=== PATIENT | female | born 1955 | race Caucasian/White ===

== ENCOUNTER 2022-09-29 13:20 | Emergency (ER) | payer MEDICARE, SELFPAY ==
[2022-09-29 13:29] VITALS: BP 114/69; PULSE 109; RESP 18; TEMP 36.9; O2SAT 99; BMI 19.4
--- NOTE | 2022-09-29 13:38 | XR_ITS ---
The [address] [address] Patient Name: REID EATON MRN: [id number] date: 1955 Sex: F Assigned Patient Location: ER Current Patient Location: ER Accession/Order Number: [id number] Exam Date: 09/29/2022 14:00 Report Date: 09/29/2022 15:03 At the request of: MATTEO LUO Procedure: XR knee LT 3V EXAM: XR knee LT 3V HISTORY: injury COMPARISON: 10/08/2013 TECHNIQUE: 3 views Left knee FINDINGS: Bones: No acute or aggressive appearing bony lesion. Joints: Severe tricompartmental osteoarthritis. There is moderate to large knee joint effusion. Soft tissues: Unremarkable. XR/XR knee LT 3V IMPRESSION: No acute fracture is noted. moderate to large knee joint effusion. CT of the knee is recommended if clinically warranted. Electronically authenticated by: MELYSSA COHEN Date: 09/29/2022 15:03
--- NOTE | 2022-09-29 14:03 | XR_ITS ---
The [address] [address] Patient Name: REID EATON MRN: [id number] date: 1955 Sex: F Assigned Patient Location: ER Current Patient Location: Accession/Order Number: [id number] Exam Date: 09/29/2022 14:00 Report Date: 09/29/2022 14:45 At the request of: MATTEO LUO Procedure: XR chest 1V EXAM: XR chest 1V HISTORY: Weight loss and COPD. COMPARISON: Chest radiograph dated 09/25/2011. TECHNIQUE: Single frontal view of the chest performed. FINDINGS: There is a 4.9 cm right hilar mass with right upper lobe atelectasis. There is also a mass within the left suprahilar region/medial aspect of the left upper chest. These findings are highly suspicious for a malignancy. The trachea is unremarkable. The heart size is normal. There is a calcified granuloma at the right lung apex. There is a nodular radiodensity within the left lower chest which could represent a nipple shadow or a summation shadow however a lung nodule cannot be excluded based on this examination. There is no additional consolidation or infiltrate. There is no pleural effusion or pulmonary vascular congestion. The bony structures appear osteopenic. There is no acute osseous abnormality. XR/XR chest 1V IMPRESSION: There is a 4.9 cm right hilar mass with right upper lobe atelectasis. There is also a mass within the left suprahilar region/medial aspect of the left upper chest. These findings are highly suspicious for a malignancy. In addition, there is a nodular radiodensity within the left lower chest which could represent a nipple shadow or a summation shadow however a lung nodule cannot be excluded based on this examination. A CT examination of the chest with intravenous contrast is recommended. This examination should be performed with intravenous contrast for optimal evaluation of the mediastinum and bilateral hilum. Electronically authenticated by: RUDY GEORGE Date: 09/29/2022 14:45
--- NOTE | 2022-09-29 14:32 | ED.LOWEXI1 ---
HPI - Extremity Injury (Lower) General Chief Complaint: Extremity Injury, Lower Stated Complaint: L KNEE SEVERE PAIN Time Seen by Provider: 09/29/22 13:46 Source: patient Source comment: LEFT KNEE PAIN AND EDEMA Mode of arrival: Wheelchair Limitations: no limitations History of Present Illness HPI Narrative: pt presents emergency department complaining of left knee swelling. Patient states she had a Iron wheelbarrow That fell onto her distal femur on top of the knee 3 weeks ago. She states since then she's had swelling to the knee. She denies any ecchymosis. She states she had pain. She has been putting it off but did not want to get it checked out until this morning when her grand kids forced her to come. She denies any paresthesias, or focal weakness. Patient states that she has lost over 20 pounds in the last 3 months. She is very nauseated does not enjoy eating any solids but she is able to tolerate fluids. She states 2 years ago her doctor told her to get a colonoscopy and an endoscopy but she felt that she did not want any invasive procedures because of fear that when her father had an invasive procedure they found him to have metastatic cancer all over and then he had chemotherapy and he she did not want to go through the same steps. She has been putting it off and does not have a primary care doctor now. States just feels generally weak. She has a chronic cough denies any chest pain. She denies any abdominal pain. Related Data Previous Rx's Medication Instructions Recorded ondansetron HCl 4 mg tablet 4 mg PO Q8H PRN nausea and 09/29/22 vomiting 5 days #14 tabs Allergies Allergy/AdvReac Type Severity Reaction Status Date / Time NARCOTIC Allergy Intermediate Uncoded 09/29/22 13:33 Review of Systems ROS Status of ROS 10 or more systems reviewed and unremarkable except as noted in history and below PFSH PFS Social History Smoking status: Former smoker Exam Narrative Exam Narrative: Nurses notes and vital signs reviewed and patient is not hypoxic. General: Nontoxic, chronic ill and in no apparent distress. Skin: Warm, dry, no pallor noted. No Rash Head: Normocephalic, atraumatic. Neck: Supple, non-tender. Eye: Pupils are equal, round and EOMI. No scleral icterus. Ears, Nose, Mouth, and Throat: TM clear, no posterior oropharynx erythema or nasal mucosal hypertrophy, uvula is mid-line Oral mucosa is moist Cardiovascular: Regular Rate and Rhythm without murmur, gallop or rub. Respiratory: No accessory muscle use or respiratory distress. Lungs are clear to auscultation, no wheezing, rales or rhonchi Chest Wall: no tenderness Back: No midline thoracic or lumbar vertebral tenderness. No CVA tenderness Musculoskeletal: tenderness to palpation to the left superior knee, mild effusion noted. There is no erythema, or ecchymosis, no signs of trauma, or infection.normal ROM, no calf or popliteal tenderness, no lower extremity edema/swelling GI: Abdomen is soft, non-distended. Normal bowel sounds. No masses appreciated. No tenderness to palpation. No rebound, guarding, or rigidity noted. Neurological: A&O x4. No cranial nerve dysfunction observed. No truncal ataxia. Moves all extremities. Psychiatric: Cooperative and interactive. Normal mood and affect. Constitutional Vital Signs, click to edit/add: Last Vital Signs Temp 98.5 F 09/29/22 13:29 Pulse 109 H 09/29/22 13:29 Resp 18 09/29/22 13:29 BP 114/69 09/29/22 13:29 Pulse Ox 99 09/29/22 13:29 O2 Del Method Room Air 09/29/22 13:29 Course Vital Signs Vital signs: Vital Signs Temperature 98.5 F 09/29/22 13:29 Pulse Rate 109 H 09/29/22 13:29 Respiratory Rate 18 09/29/22 13:29 Blood Pressure 114/69 09/29/22 13:29 Pulse Oximetry 99 09/29/22 13:29 Oxygen Delivery Method Room Air 09/29/22 13:29 Temperature 98.5 F 09/29/22 13:29 Pulse Rate 109 H 09/29/22 13:29 Respiratory Rate 18 09/29/22 13:29 Blood Pressure 114/69 09/29/22 13:29 Pulse Oximetry 99 09/29/22 13:29 Oxygen Delivery Method Room Air 09/29/22 13:29 MDM - Extremity Injury (Lower) MDM Narrative Medical decision making narrative: Patient had a knee x-ray which showed an effusion. Diogo wrap was applied. Patient complained of pain and headaches she was given Toradol, and Zofran. Patient was given 1 L of normal saline. Her symptoms improved. Patient's chest x-ray demonstrated left lung mass and a CT scan was recommended. CT scan was done and patient was found to have left lung mass with metastases to the liver. His findings were discussed with the oncologist Dr. Sanches who advised the patient can be followed as an outpatient on Saturday at his office. This findings were discussed with the patient and her granddaughter. The patient will be given a prescription for Zofran as she complains of chronic nausea. She is tolerating by mouth fluids. The patient was advised per Dr. Sanches that most of the treatment will involve immunotherapy and not chemotherapy and she was comforted by that and will follow up with him. At this time the patient is without objective evidence of an acute process requiring hospitalization or inpatient management. The patient has remained hemodynamically stable. No additional indication for emergent studies at this time. I answered all questions. Discussed discharge instructions including standard anticipatory guidance and what should prompt a return to the emergency department, including if they get worse are not getting better or develops any new or concerning symptoms. I've given them specific time frame in which to follow-up, and who to follow-up with. The patient demonstrates understanding. Patient is nontoxic and stable for discharge with outpatient follow-up. This note was created with the assistance of a speech recognition program. Although the intention is to generate documents that actually reflects the content of the visit, no guarantees can be provided that every mistake has been identified and corrected by editing. Lab Data Attestation: I reviewed the patient's lab results. 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 Sanches the oncologist Saturday as discused Stand Alone Forms: Portal Instructions Referrals: Citlalli Sanches MD [Physician] - 08/08/23 8:30 am STEPHANIE ALMAGUER APRN [Physician] - 1 week Physician,Non-Staff, [Primary Care Provider] - 1 week Discharge Date/Time: 09/29/22 17:34
[2022-09-29 14:39] LABS: Basophils Percent Auto 0.3 % (0.2-2.0); Eosinophils Percent Auto 0.2 % (0.9-7.0); Hematocrit 33.9 % (36.0-48.0); Hemoglobin 11.1 g/dL (12.0-16.0); Immature Granulocytes Abs Auto 0.08 10^3/uL (0.00-0.03); Immature Granulocytes Pct Auto 0.7 % (0.0-0.5); Lymphocytes Absolute Auto 1.3 10^3/uL (1.2-3.8); Lymphocytes Percent Auto 10.8 % (20.5-60.0); Mean Corpuscular HGB Conc 32.7 g/dL (29.9-35.2); Mean Corpuscular Hemoglobin 28.2 pg (26.7-34.0); Mean Corpuscular Volume 86.3 fL (81.0-99.0); Mean Platelet Volume 10.2 fL (9.5-13.5); Monocytes Absolute Auto 1.4 10^3/uL (0.3-0.8); Monocytes Percent Auto 11.6 % (1.7-12.0); Neutrophils Percent Auto 76.4 % (43.0-75.0); Platelet Count 537 10^3/uL (150-450); Red Blood Count 3.93 10^6/uL (4.20-5.40); Red Cell Distribution Width 14.4 % (11.0-15.0); White Blood Count 11.8 10^3/uL (4.0-11.0)
--- NOTE | 2022-09-29 14:53 | CT_ITS ---
[address] [address] Patient Name: REID EATON MRN: [id number] date: 1955 Sex: F Assigned Patient Location: ER Current Patient Location: Accession/Order Number: [id number] Exam Date: 09/29/2022 15:30 Report Date: 09/29/2022 16:15 At the request of: MATTEO LUO Procedure: CT chest w con EXAM: CT chest w con HISTORY: mass, wt loss COMPARISON: 04/29/2009 TECHNIQUE: CT chest with intravenous contrast was performed with timing for the evaluation for pulmonary arteries. Multiplanar reformats were performed. MIP (maximum intensity projection) images or 3D post processing was performed. Dose reduction techniques were achieved by using automated exposure control and/or adjustment of mA and/or kV according to patient size and/or use of iterative reconstruction technique. FINDINGS: Lungs: There is bilateral centrilobular emphysema. There is no pneumothorax or pleural effusion.. There is a left apical masslike opacity, extending to the right perihilar region and involving the pleura, measuring 7.4 x 6.3 x 8 cm in maximum dimension. Finding is representing right upper lobe bronchogenic carcinoma with postobstructive atelectasis. Airways: The trachea and left bronchus are patent. Conglomerated, necrotic lymphadenopathy results and narrowing of the right main bronchus and obstruction of the right upper lobe bronchus. Mediastinum: Multiple conglomerated, central hypoenhancing lymph nodes in the right paratracheal, AP window, right perihilar and subcarinal regions, measuring up to 5.3 cm. Aorta: No aneurysm. Cardiac: Normal size. Small pericardial effusion. Pulmonary vasculature: Diagnostic opacification of pulmonary arteries without evidence of pulmonary embolus. Normal morphology. Bones: No acute, aggressive bony abnormality. Axilla: No adenopathy. Thyroid gland: No abnormality demonstrated on provided imaging. Soft tissues: Unremarkable. Upper abdomen: There is a 6.9 cm peripheral enhancing lesion in right hepatic lobe, highly suspicious for metastasis. Dedicated abdomen and pelvic CT is comminuted for better evaluation. Additional findings: None. CT/CT chest w con IMPRESSION: No acute pulmonary embolism. 7.4 x 6.3 x 8 cm left apical masslike opacity, extending to the right perihilar region and involving the pleura, resulting in narrowing of the right main bronchus and obstruction of the right upper lobe bronchi. Finding is highly suspicious for right upper lobe bronchogenic carcinoma with postobstructive atelectasis. Multiple conglomerated necrotic mediastinal lymphadenopathy, measuring up to 5.3, representing metastasis Small pericardial effusion. A 6.9 cm peripheral enhancing lesion in right hepatic lobe, highly suspicious for metastasis. Dedicated abdomen and pelvic CT is comminuted for better evaluation. Electronically authenticated by: MELYSSA COHEN Date: 09/29/2022 16:15
[2022-09-29 14:55] LABS: Alanine Aminotransferase 11 U/L (14-59); Albumin Globulin Ratio 0.6; Alkaline Phosphatase 134 U/L (46-116); Anion Gap 16.3; Aspartate Amino Transferase 43 U/L (15-37); BUN Creatinine Ratio 10.1; Bilirubin Total 1.1 mg/dL (0.2-1.0); Calcium 9.4 mg/dL (8.5-10.1); Carbon Dioxide 24.1 mmol/L (21.0-32.0); Chloride 94 mmol/L (98-107); Estimated GFR (African America >60 (>=60); Estimated GFR (Non-African Ame >60 (>=60); Glucose 108 mg/dL (74-106); Potassium 3.4 mmol/L (3.5-5.1); Sodium 131 mmol/L (136-145)
[2022-09-29] MEDS: 0.9 % SODIUM CHLORIDE 1,000 ML 1000 ML IV (14:58)
[2022-09-29 16:24] VITALS: BP 132/70; PULSE 98; O2SAT 99
[2022-09-29 17:05] VITALS: PULSE 91; RESP 22; O2SAT 99
[2022-09-29] MEDS: ONDANSETRON 4 MG RAPDIS TABLET SL (17:13)
[2022-09-29] MEDS: KETOROLAC TROMETHAMINE 30 MG/ML VIAL IM (17:13)
== END 2022-09-29 17:34 | disposition home or self-care (01) ==
PROVIDERS: Emergency Provider Emergency Medicine
DX: M25.462 Effusion, left knee (principal); C10.4 Malignant neoplasm of branchial cleft; C78.7 Secondary malignant neoplasm of liver and intrahepatic bile duct; R11.0 Nausea; Z87.891 Personal history of nicotine dependence
CPT/HCPCS: 36415; 71045; 71260; 73562; 80053; 85025; 96372; 99285; Q9967

== ENCOUNTER 2022-10-04 10:41 | Outpatient (OUT) | payer MEDICARE, SELFPAY ==
--- NOTE | 2022-10-04 11:00 | MR_ITS ---
[address] [address] Patient Name: REID EATON MRN: [id number] date: 1955 Sex: F Assigned Patient Location: MRI Current Patient Location: MRI Accession/Order Number: [id number] Exam Date: 10/04/2022 11:00 Report Date: 10/04/2022 13:02 At the request of: ELVER JOHNSON Procedure: MR head/brain wo con EXAMINATION: MR head/brain wo con HISTORY: Non-small cell lung cancer, R91.8, R91.1, C78.7, R53.1,R11.2 COMPARISON: No relevant comparison available. TECHNIQUE: A variety of imaging planes and parameters were utilized for visualization of suspected pathology. Images were performed without contrast. FINDINGS: CEREBRUM: Corado encapsulated 4.7 x 4.0 x 3.5 cm mixed cystic and solid mass within posterior medial right parietal lobe abutting the occipital lobe. Prominent surrounding edema, effacement of the adjacent sulci, and partial effacement of the posterior horn of the right lateral ventricle. No herniation through the tentorium. CEREBELLUM: No edema, hemorrhage, mass, acute infarction, or inappropriate atrophy. BRAINSTEM: No edema, hemorrhage, mass, acute infarction, or inappropriate atrophy. CSF SPACES: Partial effacement of posterior horn of right lateral ventricle as described above. No hydrocephalus, subarachnoid hemorrhage, or mass. SKULL: No mass or other significant visible lesion. SINUSES: Limited views demonstrate no significant mucosal thickening or fluid. ORBITS: Limited views are unremarkable. OTHER: Negative. MR/MR head/brain wo con IMPRESSION: 1. There is a 4.7 cm mass within posterior medial right parietal lobe with subsequent mass effect on surrounding structures. No tentorial herniation, midline shift, or hemorrhage. Electronically authenticated by: TONG GOLDSTEIN Date: 10/04/2022 13:02
== END 2022-10-04 10:42 | disposition home or self-care (01) ==
LOC: MRI 10:41
PROVIDERS: PCP Nurse Practitioner Primary Care; Visit Provider Internal Medicine Hematology & Oncology
DX: R91.8 Other nonspecific abnormal finding of lung field (principal); R91.1 Solitary pulmonary nodule; C78.7 Secondary malignant neoplasm of liver and intrahepatic bile duct; R53.1 Weakness; R11.2 Nausea with vomiting, unspecified
CPT/HCPCS: 70551

== ENCOUNTER 2022-10-09 09:49 | Outpatient (OUT) | payer MEDICARE, SELFPAY ==
[2022-10-09] MEDS: HYDROMORPHONE HCL 0.5 MG/0.5 ML SYRINGE IV (11:32)
== END 2022-10-09 09:50 | disposition home or self-care (01) ==
LOC: HEMC 09:49
PROVIDERS: PCP Nurse Practitioner Primary Care; Visit Provider Internal Medicine Hematology & Oncology
DX: R91.8 Other nonspecific abnormal finding of lung field (principal); R91.1 Solitary pulmonary nodule; C78.7 Secondary malignant neoplasm of liver and intrahepatic bile duct; R53.1 Weakness; R11.2 Nausea with vomiting, unspecified; D72.829 Elevated white blood cell count, unspecified; D64.9 Anemia, unspecified; D75.839 Thrombocytosis, unspecified; R74.01 Elevation of levels of liver transaminase levels
CPT/HCPCS: 74178; 96374; G0463; J1170; Q9967

== ENCOUNTER 2022-10-09 11:17 | Outpatient (OUT) | payer MEDICARE, SELFPAY ==
--- NOTE | 2022-10-09 11:49 | CT_ITS ---
[address] [address] Patient Name: REID EATON MRN: [id number] date: 1955 Sex: F Assigned Patient Location: CT Current Patient Location: CT Accession/Order Number: [id number] Exam Date: 10/09/2022 12:15 Report Date: 10/09/2022 15:43 At the request of: ELVER JOHNSON Procedure: CT abdomen pelvis wo/w con EXAMINATION: CT abdomen pelvis wo/w con HISTORY: Lung mass, liver lesion COMPARISON: CT chest 09/29/2022 TECHNIQUE: Axial, Coronal, and Sagittal images were obtained without and/or with IV contrast as indicated by examination type. Dose reduction techniques were achieved by using automated exposure control and/or adjustment of mA and/or kV according to patient size and/or use of iterative reconstruction technique. FINDINGS: LUNG BASES: Emphysematous changes. LIVER: 7.1 cm rounded macroglobular heterogeneously enhancing low density mass within posterior right hepatic lobe dome. Additional small round hypodensities within liver favoring benign cysts. BILIARY: No dilatation or calcification. PANCREAS: Heterogeneous mass versus conglomeration of smaller masses/lymph nodes anterior medial to head of pancreas versus arising from the pancreas, 7.9 x 6.1 x 3.1 cm. SPLEEN: Minimally enlarged. Normal homogeneous density. ADRENALS: No mass or enlargement. KIDNEYS: Within posterior mid body of the kidneys a 1.3 cm hypodense mildly enhancing mass. Projecting from inferior pole of right kidney is a 2.3 cm collection of cysts versus multiloculated cyst projecting from inferior pole with a single small enhancing soft tissue component. Unremarkable left kidney. BOWEL/MESENTERY: No visible mass, obstruction, or bowel wall thickening. AORTA/VASCULAR: No aneurysm or dissection. RETROPERITONEUM: No mass or adenopathy. LYMPH NODES: No adenopathy. URINARY BLADDER: No visible focal wall thickening, lesion, or calculus. PELVIC ORGANS: No visible mass. Pelvic organs appropriate for patient age. ABDOMINAL WALL: No mass or hernia. BONES: Moderate-marked degenerative disc disease L4-5, L5-S1. No bone lesion or fracture. OTHER: Negative. CT/CT abdomen pelvis wo/w con IMPRESSION: 1.Heterogeneously enhancing 7.1 cm mass within right hepatic lobe; neoplasm versus radial scar. Neoplasm is suspected. 2. Multilobular mass versus conglomeration of masses arising from the head of pancreas versus compressing the head of the pancreas, 7.9 cm maximum diameter. Findings favor neoplasm. 3. 2 separate complex cysts versus masses within right kidney; both have suspicious components. Electronically authenticated by: TONG GOLDSTEIN Date: 10/09/2022 15:43
== END 2022-10-09 11:18 | disposition home or self-care (01) ==
LOC: CT 11:19
PROVIDERS: PCP Nurse Practitioner Primary Care; Visit Provider Internal Medicine Hematology & Oncology
DX: R91.8 Other nonspecific abnormal finding of lung field (principal)
CPT/HCPCS: 74178; Q9967